=== PATIENT | male | born 1970 | race Caucasian/White ===

== ENCOUNTER 2017-11-30 16:11 | Emergency (ER) | payer SELFPAY ==
[~2017-11-30] VITALS: Ht 170.2 cm; Wt 70.8 kg
[2017-11-30 16:31] VITALS: BP 120/72
[2017-11-30] MEDS ORDERED: IPRATRPIUM/ALBUTEROL 0.5/2.5MG 3 ML NEBU. NEB ONE (16:45)
[2017-11-30] MEDS ORDERED: predniSONE 10 MG TABLET PO ONE (16:45)
--- NOTE | 2017-11-30 17:03 | RAD ---
Chest, 2 views, 11/30/2017: HISTORY: Shortness of breath, cough, flulike symptoms, congestion The heart size and pulmonary vascularity are normal. There is minimal linear atelectasis or scarring in the right parahilar region. A density in the right cardiophrenic angle is probably due to a prominent epicardial fat pad. The left chest is clear. There is no evidence of pleural fluid. Minimal spurring is present in the spine. IMPRESSION: Minimal right perihilar atelectasis or scarring. Electronically signed by: Oz Suarez MD (11/30/2017 4:59 PM) [facility]
[2017-11-30] MEDS ORDERED: PRED50TA PO (17:17)
[2017-11-30] MEDS ORDERED: AZIT250T6 PO (17:17)
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
== END 2017-11-30 17:22 | disposition home or self-care (01) ==
LOC: ER 16:11
DX: J06.9 Acute upper respiratory infection, unspecified (principal)
CPT/HCPCS: 71046; 94640; 99284; J7512